=== PATIENT | male | born 1945 | race Caucasian/White ===

== ENCOUNTER → 2018-11-05 08:57 | Outpatient (CLI) | payer MEDICARE, OTHER, SELFPAY ==
--- NOTE | 2018-11-05 09:00 | DI.US.S_ITS ---
PROCEDURE: US ABD AORTA ANEURYSM SCREEN INDICATIONS: AAA SCREEN TECHNIQUE: Real time scanning was performed of the aorta and iliac arteries, with image documentation. COMPARISON: None. FINDINGS: Aorta: Proximal aortic diameter measures 2.9 cm. Mid-aorta measures 2.4 cm. Distal aortic diameter is 1.9 cm. Iliac arteries: Right common iliac artery measures 1.1 cm. Left common iliac artery measures 1.2 cm. IMPRESSION: No aneurysm found. Dictated by: Nile Allen M.D. on 11/05/2018 at 10:02 Approved by: Nile Allen M.D. on 11/05/2018 at 10:03
--- NOTE | 2018-11-05 09:00 | DI.RAD.S_ITS ---
PROCEDURE: XR KNEE RT 4V INDICATIONS: Knee pain following TKA TECHNIQUE: 3 views of the knee were acquired. COMPARISON: None. FINDINGS: Bones: No acute fractures or dislocations. There is a right total knee arthroplasty. Minimal medial subluxation of the patella relative to the knee arthroplasty hardware. There is minimal lucency superior to the medial femoral condylar component of the right knee arthroplasty. Small round 3 mm lucencies are identified on AP view within the proximal diaphysis of the right tibia, corresponding to a linear lucent internal fixation screw tracks partially imaged on lateral view. Soft tissues: No joint effusion. IMPRESSION: Minimal lucency superior to the medial femoral condylar component of the right knee arthroplasty, which may represent a degree of wear/loosening. Attention on follow-up exams suggested. Dictated by: Sourav Mendes M.D. on 11/05/2018 at 10:39 Approved by: Sourav Mendes M.D. on 11/05/2018 at 10:45
== END ==
PROVIDERS: PCP Student in an Organized Health Care Education/Training Program; Visit Provider Student in an Organized Health Care Education/Training Program
DX: M25.561 Pain in right knee (principal); Z13.6 Encounter for screening for cardiovascular disorders
CPT/HCPCS: 73562; 76706